=== PATIENT | female | born 1985 | race Hispanic/Latino ===

== ENCOUNTER 2024-06-26 03:28 | Emergency (ER) | payer BC ==
[~2024-06-26] VITALS: Ht 154.9 cm; Wt 68.0 kg
--- NOTE | 2024-06-26 04:56 | ERN ---
ED Note History of Present Illness Stated Complaint: HEADACHE Chief Complaint: Headache Time Seen by MD: 04:03 Dictation: This is a 38-year-old female who presented to the emergency room with her significant other with complaints of a headache that started around 9:00 p.m. last night. She stated that most of the headache is across the forehead and she tried to rub something on the forehead without much relief and eventually she took Motrin. Despite that she was still experiencing the headache and hence she came into the ER for further evaluation. Never had any history of migraines or this kind of a headache before no history of any facial asymmetry diplopia motor weakness or seizure activity however she did state that she had some blurred vision. She denied consuming any alcohol last night. She also reported some nausea but no vomitings. Temperature 97.4� pulse 71 respirations 16 blood pressure 124/77 with a pulse oximetry of 100% on room air Allergies: Coded Allergies: No Known Allergies (Unverified Allergy, Unknown, 06/26/24) Past Medical History Past Medical History: No Pertinent History Surgical History: None Family History: Negative Social History: Negative History: Not Applicable LMP: June 25, 2024 RN Note Reviewed/Agreed w/PFSH: Yes Review of System Dictation Constitutional: Negative for fever,chills, and weight loss Eyes: Negative for injury, pain,redness, and discharge ENT: Negative for injury,pain or swelling Cardiovascular: Negative for chest pain, palpitations, and edema Respiratory: Negative for shortness of breath, cough, and wheezing, Abdomen/GI: Negative for abdominal pain, nausea, vomiting, diarrhea, and constipation Back: Negative for injury and pain : Negative for injury, bleeding and discharge MS/Extremity: Negative for injury and deformity Skin: Negative for rash, and discoloration Neuro: Positive for headache, denied weakness, numbness, tingling, and seizure Psych: Negative for suicide ideation, homicidal ideation, and hallucinations Initial Vital Sign VS Vital Signs Date Time Temp Pulse Resp B/P (MAP) Pulse Ox O2 Delivery O2 Flow Rate FiO2 06/26/24 03:30 97.3 71 16 124/77 100 Room Air 06/26/24 05:24 0 21 Physical Exam Dictation General: awake, alert, NAD Head/Face: Normocephalic, atraumatic Eyes: PERRL, EOMI, vision at baseline ENT: oral cavity clear, TMs clear, no signs of infection Neck: Trachea midline, supple, no nuchal rigidity Cardiovascular: RRR, normal S1/S2, No MRGs, no JVD Respiratory: CTAB, no respiratory distress, No rales or wheezes Abdomen: Soft, non-tender, non-distended, normal bowel sounds, no guarding or rebound. Skin: Warm, dry, normal turgor, no rash MS/Extremity: Pulses equal, no cyanosis, neurovascular intact, FROM Neuro: COAx4, GCS 15, strength 5/5, CN 2-12 intact, normal cerebellar exam, normal gait, Psych: Normal behavior, mood, and affect normal Extremities-trace edema without any palpable cords, Homans sign is negative Results (Laboratory/Radiology) Labs Reviewed?: Yes ED Course ED Course Orders Procedure Category Date Status Time Diphenhydramine Hcl PHA 06/26/24 Complete (Benadryl Inj) 05:00 Prochlorperazine PHA 06/26/24 Complete 10mg/2ml Inj 05:00 Ketorolac PHA 06/26/24 Complete Tromethamine 30mg/Ml 05:00 Ct Head/Brain W/O CT 06/26/24 Taken Contrast 04:56 Current Medications Medications (Trade) Dose Ordered Sig/Arianna Route PRN Reason Start Time Stop Time Status Last Admin Dose Admin Diphenhydramine HCl (BENAdryl INJ) 25 mg ONCE ONCE IV 06/26/24 05:00 06/26/24 05:01 DC 06/26/24 05:23 Ketorolac Tromethamine (toRADol) 30 mg ONCE ONCE IVP 06/26/24 05:00 06/26/24 05:01 DC 06/26/24 05:23 Prochlorperazine Edisylate (Compazine 10mg/ 2ml Inj) 10 mg ONCE ONCE IV 06/26/24 05:00 06/26/24 05:01 DC 06/26/24 05:23 Vital Signs Date Time Temp Pulse Resp B/P (MAP) Pulse Ox O2 Delivery O2 Flow Rate FiO2 06/26/24 06:33 97.5 74 16 128/78 100 Room Air* 0 21 06/26/24 05:24 71 16 132/77 97 Room Air* 0 21 06/26/24 03:30 97.3 71 16 124/77 100 Room Air We will perform diagnostic labs, advanced imaging and administer medications according to the patient's complaint. Once the results are available, will review and personally interpreted the labs to rule out any acute life- threatening emergency the trach require immediate intervention and treatment. I will then re-evaluate the patient after treatment and diagnostic exams have return to determine whether the patient requires any further testing, can safely be discharged home or need further admission to hospital for additional hardik atment and evaluation. CT scan of the head is essentially negative for any acute intracranial events. Patient responded clinically to the treatment she will be discharged to home to follow up with her primary care physician Medical Decision Making MDM MDM: Differential diagnosis: Tension headache, vascular headache, headache due to refractory error, glaucoma, cervical spondylosis Rationale: Tests considered and ordered secondary to shared decision making include: Previous outside records reviewed: Old ER visits. Risk of complication and/or morbidity or mortality of patient management: None Medications-Per medication reconciliation Need for hospitalization: Patient does not meet criteria for hospitalization. Need for emergency major/minor surgery: No There are no social concerns with this patient. Prescription drug management Prescriptions will include symptomatic care Patient's prior external medical records from other ER visits were reviewed by me as indicated. Prior testing and results from previous visits were reviewed. Prior tests were taken into account with medical decision making and resource utilization, independent historian/historians were used to obtain complete medical history. I independently interpreted the test that were performed, results were reviewed by me and considered findings on radiology if ordered. Medical management and examination interpretation discussions were had by me with other qualified healthcare professionals as indicated for the patient's care. Problem List Problem List: (1) Headache (2) Tension headache DX & DISP Disposition: Discharge Departure Impression: Primary Impression: Tension headache Additional Impression: Headache Condition: Stable Additional Instructions: Patient and the caregiver have been informed of all the diagnostic tests and the imaging conducted during the today's visit to the emergency room and has verbalized understanding of the results I have personally reviewed and interpreted all diagnostic exams performed here in the ER today as well as the vital signs documented by the nursing staff. The patient is now being discharged to home and should follow up with the primary care physician or the specialist as directed by the ER staff. Follow-up with primary care provider in 1 to 2 days. Take medications as directed here in the emergency room. Okay to continue home medications unless otherwise discussed during your visit in the emergency room today. Return to your nearest emergency room if symptoms worsen or if there is no improvement. Call 911 if you need immediate assistance. Take Tylenol or Motrin [id number] as needed and if no contraindications are present. Increase oral hydration. A wound culture or urine culture was ordered here in the emergency room department please follow-up with primary care provider and advise them to get repeat ports from our facility. If you had any Darnell wrap/splints that were applied here, please do not remove them until you see your primary care or specialty. Referrals: SELF,REFERRAL (PCP) NERI CARTER MD June 26, 2024 04:56
[2024-06-26] MEDS: DiphenhydrAMINE HCL 50 MG/ML VIAL IV ONE (05:23)
[2024-06-26] MEDS: PROCHLORPERAZINE 10MG/2ML INJ IV ONE (05:23)
[2024-06-26] MEDS: ketOROlac 30MG VIAL (30MG/ML) IVP ONE (05:23)
[2024-06-26 06:33] VITALS: BP 128/78; PULSE 74; RESP 16; TEMP 97.6; O2SAT 100
--- NOTE | 2024-06-26 08:42 | HMCIMG ---
Exam Type: CT HEAD/BRAIN W/O CONTRAST Clinical Information: new onset headache Comparison: None CT Dose Index (CTDI): 57.33 mGy Dose Length Product (DLP): 956.79 total mGy-cm Findings: The examination is unremarkable. Ponce-white matter junction is preserved. No intra or extra axial lesions or fluid collections are seen. Specifically, ponce and white matter are normal in signal characteristics with normal caliber of ventricles and periventricular cisterns with no evidence of intra or or extra-axial hemorrhage, lacunar infarct, or major territorial infarct, mass, or other abnormality. There are no infarcts. There are no hemorrhages. Periventricular white matter locations are preserved. The orbital contents and structures of the posterior fossa are intact. Impression: Normal CT of the head. This study was performed using dose reduction techniques to include automated exposure control and/or adjustment of the mA and/or kV according to patient size.
== END 2024-06-26 06:42 | disposition home or self-care (01) ==
LOC: EDH 03:28
DX: G44.209 Tension-type headache, unspecified, not intractable (principal)
CPT/HCPCS: 99284; 96374; 70450; 96375; J1885; J1200; J0780